=== PATIENT | female | born 1935 | race Hispanic/Latino ===

== ENCOUNTER 2020-06-06 16:41 | Inpatient (IN) | payer OTHER ==
[2020-06-06 22:52] LABS: Absolute Lymphocytes (CBC) 2.6 K/uL (0.7-4.9); Basophils % 0.6 % (0-1.3); Hematocrit 36.4 % (36.0-45.0); Lymphocytes % 40.6 % (15.3-44.8); MPV 8.7 fL (7.6-11.3); RBC Red Blood Cell Count 4.17 M/uL (3.86-4.86)
[2020-06-06 23:00] LABS: Protime INR 0.99
[2020-06-06 23:12] LABS: ALT/SGPT 22 U/L (12-78); AST/SGOT 20 U/L (15-37); Albumin 3.7 g/dL (3.4-5.0); Alkaline Phosphatase 47 U/L (45-117); BUN Blood Urea Nitrogen 24 mg/dL (7-18); Bicarbonate 28 mmol/L (21-32); Bilirubin Direct 0.1 mg/dL (0-0.2); Bilirubin Total 0.6 mg/dL (0.2-1.0); Glucose Level 106 mg/dL (74-106); Magnesium 2.4 mg/dL (1.8-2.4); NT PRO-BNP 372 pg/mL (<450); Potassium 3.8 mmol/L (3.5-5.1); Protein, Total 7.2 g/dL (6.4-8.2); Sodium Level 143 mmol/L (136-145); Troponin (Emerg Dept Use Only) < 0.02 ng/mL (0.0-0.045)
[2020-06-06] MEDS ORDERED: HYDRALAZINE HCL 10 MG TABLET ONE (23:21)
[2020-06-06] MEDS ORDERED: carvediloL 6.25 MG TAB ONE (23:21)
--- NOTE | 2020-06-06 23:54 | EDPHYS ---
Physician Documentation [facility] Name: Shaina Zuleta Age: 84 yrs Sex: Female : 1935 Arrival Date: 06/06/2020 Time: 16:42 Bed 24 Private MD: Behzad Hirsch ED Physician Herberth Lovell HPI: 06/06 22:28 This 84 yrs old Female presents to ER via Ambulatory with complaints of pkl Numbness Of Face. 22:28 The patient's problem is reported as paresthesias, left hand . Onset: The pkl symptoms/episode began/occurred yesterday, Symptoms resolved after about 30 mins.. Today at about 9 AM, she complained numbness left side face. Symptoms resolved after about 3 hours, She is at present asymptomatic. Historical: - Allergies: 17:59 No Known Allergies; ca1 - PMHx: 17:59 Hypertension; Arthritis; ca1 - PSHx: 17:59 Hysterectomy; ca1 - Immunization history:: Adult Immunizations up to date, Pneumococcal vaccine is not up to date, Flu vaccine is not up to date. - Social history:: Smoking status: Patient denies any tobacco usage or history of. ROS: 22:28 Eyes: Negative for injury, pain, redness, and discharge, ENT: Negative for injury, pkl pain, and discharge, Neck: Negative for injury, pain, and swelling, Cardiovascular: Negative for chest pain, palpitations, and edema, Respiratory: Negative for shortness of breath, cough, wheezing, and pleuritic chest pain, Abdomen/GI: Negative for abdominal pain, nausea, vomiting, diarrhea, and constipation, Back: Negative for injury and pain, : Negative for injury, bleeding, discharge, and swelling, MS/Extremity: Negative for injury and deformity, Skin: Negative for injury, rash, and discoloration. 22:28 Neuro: Positive for numbness, of the left hand yesterday and left side face this morning. Exam: 23:51 Radiologist reports: No acute intracranial abnormalities pkl 23:51 Head/Face: Normocephalic, atraumatic. Eyes: Pupils equal round and reactive to light, pkl extra-ocular motions intact. Lids and lashes normal. Conjunctiva and sclera are non-icteric and not injected. Cornea within normal limits. Periorbital areas with no swelling, redness, or edema. ENT: Nares patent. No nasal discharge, no septal abnormalities noted. Tympanic membranes are normal and external auditory canals are clear. Oropharynx with no redness, swelling, or masses, exudates, or evidence of obstruction, uvula midline. Mucous membranes moist. Neck: Trachea midline, no thyromegaly or masses palpated, and no cervical lymphadenopathy. Supple, full range of motion without nuchal rigidity, or vertebral point tenderness. No Meningismus. Chest/axilla: Normal chest wall appearance and motion. Nontender with no deformity. No lesions are appreciated. Cardiovascular: Regular rate and rhythm with a normal S1 and S2. No gallops, murmurs, or rubs. Normal PMI, no JVD. No pulse deficits. Respiratory: Lungs have equal breath sounds bilaterally, clear to auscultation and percussion. No rales, rhonchi or wheezes noted. No increased work of breathing, no retractions or nasal flaring. Abdomen/GI: Soft, non-tender, with normal bowel sounds. No distension or tympany. No guarding or rebound. No evidence of tenderness throughout. Back: No spinal tenderness. No costovertebral tenderness. Full range of motion. Skin: Warm, dry with normal turgor. Normal color with no rashes, no lesions, and no evidence of cellulitis. MS/ Extremity: Pulses equal, no cyanosis. Neurovascular intact. Full, normal range of motion. Neuro: Awake and alert, GCS 15, oriented to person, place, time, and situation. Cranial nerves II-XII grossly intact. Motor strength 5/5 in all extremities. Sensory grossly intact. Cerebellar exam normal. Normal gait. Vital Signs: 17:52 BP 175 / 62; Pulse 67; Resp 18 S; Temp 97.1(TE); Pulse Ox 100% on R/A; Weight 66.22 kg ca1 (R); Height 5 ft. 1 in. (154.94 cm) (R); 22:15 BP 201 / 57; Pulse 59; Resp 18; Pulse Ox 100% on R/A; ea 23:21 BP 174 / 48; Pulse 65; Resp 18; Temp 98; Pulse Ox 100% on R/A; ll2 06/07 00:25 BP 146 / 49; Pulse 57; Resp 16; Temp 98; Pulse Ox 99% on R/A; ll2 01:36 BP 148 / 50; Pulse 52; Resp 18; Pulse Ox 98% ; ea 20:00 BP 140 / 47; Pulse 65; Resp 16; Pulse Ox 99% ; Pain 0/10; cr4 06/06 17:52 Body Mass Index 27.59 (66.22 kg, 154.94 cm) ca1 NIH Stroke Scale Scores: 06/06 23:00 NIHSS Score: 0 ll2 MDM: 22:05 Patient medically screened. pkl 22:25 ED course: Talked to Dr. Hirsch, If CT Scan brain is negative to give 75 mg Plavix and pkl admit patient. No thrombolytics ( Outside window for therapy and symptoms have resolved ). 23:51 Data reviewed: vital signs, nurses notes, lab test result(s), EKG, radiologic studies, pkl CT scan, plain films. 06/06 22:24 Order name: Basic Metabolic Panel; Complete Time: 23:25 pkl 06/06 22:24 Order name: CBC with Diff; Complete Time: 23:25 pkl 06/06 22:24 Order name: LFT's; Complete Time: 23:25 pkl 06/06 22:24 Order name: Magnesium; Complete Time: 23:25 pkl 06/06 22:24 Order name: NT PRO-BNP; Complete Time: 23:25 pkl 06/06 22:24 Order name: PT-INR; Complete Time: 23:25 pkl 06/06 22:24 Order name: Troponin (emerg Dept Use Only); Complete Time: 23:25 pkl 06/06 22:24 Order name: XRAY Chest (1 view); Complete Time: 06:28 pkl 06/07 01:13 Order name: Basic Metabolic Panel EDMS 06/07 01:13 Order name: Basic Metabolic Panel; Complete Time: 06:28 EDMS 06/07 01:13 Order name: CBC with Automated Diff EDMS 06/07 01:13 Order name: CBC with Automated Diff; Complete Time: 06:28 EDMS 06/07 02:15 Order name: SARS-COV-2 RT PCR; Complete Time: 06:28 EDMS 06/06 22:24 Order name: EKG; Complete Time: 22:24 pkl 06/06 22:24 Order name: Cardiac monitoring; Complete Time: 22:39 pkl 06/06 22:24 Order name: EKG - Nurse/Tech; Complete Time: 22:39 pkl 06/06 22:24 Order name: IV Saline Lock; Complete Time: 22:39 pkl 06/06 22:24 Order name: Labs collected and sent; Complete Time: 22:39 pkl 06/06 22:24 Order name: O2 Per Protocol; Complete Time: 22:39 pkl 06/06 22:24 Order name: O2 Sat Monitoring; Complete Time: 22:39 pkl 06/06 22:25 Order name: CT Head Brain wo Cont pkl 06/07 01:13 Order name: Regular EDMS 06/07 01:13 Order name: Stroke Protocol EDMS 06/07 18:44 Order name: MRI; Complete Time: 06:28 EDMS 06/07 18:49 Order name: MRI; Complete Time: 06:28 EDMS Administered Medications: 23:10 Drug: carvedilol 12.5 mg Route: PO; ll2 23:58 Follow up: Response: No adverse reaction ll2 23:10 Drug: hydrALAZINE 10 mg Route: PO; ll2 23:58 Follow up: Response: No adverse reaction ll2 06/07 00:15 Drug: PlaVIX 75 mg Route: PO; ll2 00:19 Follow up: Response: No adverse reaction ll2 Disposition: 06/06/20 23:53 Hospitalization ordered by Behzad Hirsch for Inpatient Admission. Preliminary diagnosis is Transient ischemic attack. - Bed requested for Telemetry/MedSurg (Inpatient). - Status is Inpatient Admission. cr4 - Condition is Stable. - Problem is new. - Symptoms have improved. NIH Stroke Scale - NIH Stroke Score Date: 06/06/2020 Time: 23:00 Total Score = 0 1a. Level of Consciousness (LOC) - 0(Alert) 1b. Level of Consciousness (LOC) (Year \T\ Age) - 0(Both) 1c. LOC Commands (Open \T\ Closes Eyes/Supervisor Offset Plate Preparation) - 0(Both) 2. Best Gaze (Lateral Gaze Paresis) - 0(Normal) 3. Visual Field Loss - 0(No visual loss) 4. Facial Palsy - 0(Normal) 5a. Left Arm: Motor (10-second hold) - 0(No drift) 5b. Right Arm: Motor (10-second hold) - 0(No drift) 6a. Left Leg: Motor (5-second hold - always test supine) - 0(No drift) 6b. Right Leg: Motor (5-second hold - always test supine) - 0(No drift) 7. Limb Ataxia (finger/nose \T\ heel/mcqueen - test with eyes open) - 0(Absent) 8. Sensory Loss (pinprick arms/legs/face) - 0(Normal) 9. Best Language: Aphasia (description/naming/reading) - 0(No aphasia) 10. Dysarthria (speech clarity - read or repeat words) - 0(Normal) 11. Extinction and Inattention (visual/tactile/auditory/spatial/personal) - 0(No abnormality) Initials: ll2 Signatures: Dispatcher [employer] EDPA Lluvia Greene RN Maxwell Hughes RN Herberth Alvarez MD MD pkl Ruiz, Claudia RN RN cr4 Judith Ohara Cheryl, RN RN ca1 Yaquelin Stinson RN RN ll2 Corrections: (The following items were deleted from the chart) 01:03 06/06 23:55 CORONAVIRUS+MR.LAB.BRZ ordered. [facility] EDPA 12 01:06 12 23:53 Hospitalization Ordered by Behzad Hirsch MD for Inpatient Admission. Preliminary diagnosis is Transient ischemic attack. Bed requested for Telemetry/MedSurg (Inpatient). Status is Inpatient Admission. Condition is Stable. Problem is new. Symptoms have improved. [facility] 12 14:42 01:06 06/06/2020 23:53 Hospitalization Ordered by Behzad Hirsch MD for Inpatient dw Admission. Preliminary diagnosis is Transient ischemic attack. Bed requested for [facility] ER HOLD. Status is Inpatient Admission. Condition is Stable. Problem is new. Symptoms have improved. sg 16:53 14:42 06/06/2020 23:53 Hospitalization Ordered by Behzad Hirsch MD for Inpatient dw Admission. Preliminary diagnosis is Transient ischemic attack. Bed requested for Telemetry/MedSurg (Inpatient). Status is Inpatient Admission. Condition is Stable. Problem is new. Symptoms have improved. dw 18:47 16:53 06/06/2020 23:53 Hospitalization Ordered by Behzad Hirsch MD for Inpatient eb Admission. Preliminary diagnosis is Transient ischemic attack. Bed requested for [facility] ER HOLD. Status is Inpatient Admission. Condition is Stable. Problem is new. Symptoms have improved. dw 20:42 18:47 06/06/2020 23:53 Hospitalization Ordered by Behzad Hirsch MD for Inpatient cr4 Admission. Preliminary diagnosis is Transient ischemic attack. Bed requested for Telemetry/MedSurg (Inpatient). Status is Inpatient Admission. Condition is Stable. Problem is new. Symptoms have improved. eb
--- NOTE | 2020-06-06 23:54 | ER ---
Nurse's Notes [facility] Name: Shaina Zuleta Age: 84 yrs Sex: Female : 1935 Arrival Date: 06/06/2020 Time: 16:42 Bed 24 Private MD: Behzad Hirsch Diagnosis: Transient ischemic attack Presentation: 06/06 17:52 Chief complaint: Niece: She's been having numbness on the L hand since yesterday, it ca1 went away. Then today, numbness on L side of face started around noon and went away. A\T\Ox4. No slurring of speech. VAN negative. No facial drooping. Coronavirus screen: Client denies travel out of the [place] in the last 14 days. At this time, the client does not indicate any symptoms associated with coronavirus-19. Ebola Screen: Patient negative for fever greater than or equal to 101.5 degrees Fahrenheit, and additional compatible Ebola Virus Disease symptoms Patient denies exposure to infectious person. Patient denies travel to an Ebola-affected area in the 21 days before illness onset. No symptoms or risks identified at this time. Initial Sepsis Screen: Does the patient meet any 2 criteria? No. Patient's initial sepsis screen is negative. Does the patient have a suspected source of infection? No. Patient's initial sepsis screen is negative. Risk Assessment: Do you want to hurt yourself or someone else? Patient reports no desire to harm self or others. Onset of symptoms was June 06, 2020. 17:52 Method Of Arrival: Ambulatory ca1 17:52 Acuity: LUL 3 ca1 Historical: - Allergies: 17:59 No Known Allergies; ca1 - PMHx: 17:59 Hypertension; Arthritis; ca1 - PSHx: 17:59 Hysterectomy; ca1 - Immunization history:: Adult Immunizations up to date, Pneumococcal vaccine is not up to date, Flu vaccine is not up to date. - Social history:: Smoking status: Patient denies any tobacco usage or history of. Screenin:23 Abuse screen: Denies threats or abuse. Nutritional screening: No deficits noted. ll2 Tuberculosis screening: No symptoms or risk factors identified. Fall Risk None identified. Assessment: 22:15 Reassessment: ERD to bedside. General: Appears in no apparent distress. Behavior is ll2 calm, cooperative, appropriate for age. Pain: Denies pain. Neuro: Level of Consciousness is awake, alert, obeys commands, Oriented to person, place, time, situation. Cardiovascular: Patient's skin is warm and dry. Respiratory: Airway is patent Respiratory effort is even, unlabored, Respiratory pattern is regular, symmetrical. GI: No signs and/or symptoms were reported involving the gastrointestinal system. : No signs and/or symptoms were reported regarding the genitourinary system. EENT: No signs and/or symptoms were reported regarding the EENT system. Derm: Skin is intact, is healthy with good turgor, Skin is dry, Skin is pink, warm \T\ dry. Musculoskeletal: Circulation, motion, and sensation intact. Range of motion: intact in all extremities. 22:50 Reassessment: returned with pt from ct via stretcher. ll2 23:10 Reassessment: Patient and/or family updated on plan of care and expected duration. Pain ll2 level reassessed. Patient is alert, oriented x 3, equal unlabored respirations, skin warm/dry/pink. 12 00:15 Reassessment: Patient and/or family updated on plan of care and expected duration. Pain ll2 level reassessed. Patient is alert, oriented x 3, equal unlabored respirations, skin warm/dry/pink. charlie Barrera: [phone]. 00:55 Reassessment: Patient and/or family updated on plan of care and expected duration. Pain ll2 level reassessed. Patient is alert, oriented x 3, equal unlabored respirations, skin warm/dry/pink. 02:00 Reassessment: Patient and/or family updated on plan of care and expected duration. Pain ll2 level reassessed. Patient is alert, oriented x 3, equal unlabored respirations, skin warm/dry/pink. 03:00 Reassessment: report given to FABBY chung. ll2 19:05 Reassessment: Patient and/or family updated on plan of care and expected duration. Pain cr4 level reassessed. Patient is alert, oriented x 3, equal unlabored respirations, skin warm/dry/pink. General: Appears in no apparent distress. comfortable, Behavior is calm, cooperative, appropriate for age. Pain: Denies pain. Neuro: Level of Consciousness is awake, alert, obeys commands, Denies weakness numbness headache. Cardiovascular: Denies nausea, shortness of breath, syncope, Patient's skin is warm and dry. Respiratory: Airway is patent Respiratory effort is even, unlabored, Respiratory pattern is regular, symmetrical. GI: No signs and/or symptoms were reported involving the gastrointestinal system. : No signs and/or symptoms were reported regarding the genitourinary system. EENT: No signs and/or symptoms were reported regarding the EENT system. Derm: Musculoskeletal: Circulation, motion, and sensation intact. Range of motion: intact in all extremities. 19:10 Reassessment: awaiting floor to be ready for report called and phone was busy.. cr4 20:00 Reassessment: report called and given to Neisha SEQUEIRA. waiting on US to azeem villafana cr4 US.. Vital Signs: 12 17:52 BP 175 / 62; Pulse 67; Resp 18 S; Temp 97.1(TE); Pulse Ox 100% on R/A; Weight 66.22 kg ca1 (R); Height 5 ft. 1 in. (154.94 cm) (R); 22:15 BP 201 / 57; Pulse 59; Resp 18; Pulse Ox 100% on R/A; ea 23:21 BP 174 / 48; Pulse 65; Resp 18; Temp 98; Pulse Ox 100% on R/A; ll2 12/04 00:25 BP 146 / 49; Pulse 57; Resp 16; Temp 98; Pulse Ox 99% on R/A; ll2 01:36 BP 148 / 50; Pulse 52; Resp 18; Pulse Ox 98% ; ea 20:00 BP 140 / 47; Pulse 65; Resp 16; Pulse Ox 99% ; Pain 0/10; cr4 12 17:52 Body Mass Index 27.59 (66.22 kg, 154.94 cm) ca1 NIH Stroke Scale Scores: 06/06 23:00 NIHSS Score: 0 ll2 ED Course: 16:42 Patient arrived in ED. ag5 16:43 Behzad Hirsch MD is Private Physician. ag5 17:58 Triage completed. ca1 17:59 Arm band placed on right wrist. ca1 22:02 Nilo Cancino RN is Primary Nurse. rv 22:05 Herberth Lovell MD is Attending Physician. pkl 22:23 Patient has correct armband on for positive identification. Pulse ox on. NIBP on. ll2 22:38 Inserted saline lock: 20 gauge in right forearm, using aseptic technique. Blood ea collected. 22:49 XRAY Chest (1 view) In Process Unspecified. EDMS 22:59 CT Head Brain wo Cont In Process Unspecified. EDMS 23:52 Behzad Hirsch MD is Hospitalizing Provider. pkl 06/07 00:10 COVID swab sent to lab. ll2 20:00 No provider procedures requiring assistance completed. Patient admitted, IV remains in cr4 place. Administered Medications: 06/06 23:10 Drug: carvedilol 12.5 mg Route: PO; ll2 23:58 Follow up: Response: No adverse reaction ll2 23:10 Drug: hydrALAZINE 10 mg Route: PO; ll2 23:58 Follow up: Response: No adverse reaction ll2 06/07 00:15 Drug: PlaVIX 75 mg Route: PO; ll2 00:19 Follow up: Response: No adverse reaction ll2 Outcome: 06/06 23:53 Decision to Hospitalize by Provider. pkl 06/07 20:42 Patient left the ED. cr4 20:42 Admitted to Med/surg accompanied by tech, family with patient, via wheelchair, with cr4 chart, Report called to Sissy 20:42 Condition: stable 20:42 Discharge instructions given to patient, family, Instructed on the need for admit, Demonstrated understanding of instructions. NIH Stroke Scale - NIH Stroke Score Date: 06/06/2020 Time: 23:00 Total Score = 0 1a. Level of Consciousness (LOC) - 0(Alert) 1b. Level of Consciousness (LOC) (Year \T\ Age) - 0(Both) 1c. LOC Commands (Open \T\ Closes Eyes/Assistant Librarian) - 0(Both) 2. Best Gaze (Lateral Gaze Paresis) - 0(Normal) 3. Visual Field Loss - 0(No visual loss) 4. Facial Palsy - 0(Normal) 5a. Left Arm: Motor (10-second hold) - 0(No drift) 5b. Right Arm: Motor (10-second hold) - 0(No drift) 6a. Left Leg: Motor (5-second hold - always test supine) - 0(No drift) 6b. Right Leg: Motor (5-second hold - always test supine) - 0(No drift) 7. Limb Ataxia (finger/nose \T\ heel/mcqueen - test with eyes open) - 0(Absent) 8. Sensory Loss (pinprick arms/legs/face) - 0(Normal) 9. Best Language: Aphasia (description/naming/reading) - 0(No aphasia) 10. Dysarthria (speech clarity - read or repeat words) - 0(Normal) 11. Extinction and Inattention (visual/tactile/auditory/spatial/personal) - 0(No abnormality) Initials: ll2 Signatures: Dispatcher [employer] EDHerberth Rawls MD MD pkl Madalyn Harper, RN RN cr4 Charley Garcia RN Nilo Irizarry ea, RN Lisbet Graham, RN RN Vaibhav Briggs ag5 Yaquelin Stinson, RN RN ll2
[2020-06-07] MEDS ORDERED: CLOPIDOGREL 75 MG TABLET ONE (00:16)
[2020-06-07] MEDS ORDERED: NA CHLORIDE 0.9% 1,000 ML ONE ×2 (03:49→15:15)
[2020-06-07] MEDS: NA CHLORIDE 0.9% 1,000 ML IV SCH ×2 (04:06→15:01)
[2020-06-07] MEDS: HYDRALAZINE HCL 25 MG TABLET PO SCH ×2 (08:23→21:19)
[2020-06-07] MEDS: NIFEDIPINE XL 60 MG TABLET PO SCH (08:23)
[2020-06-07] MEDS: lisinopriL 20 MG TAB PO SCH (08:23)
[2020-06-07] MEDS: hydroCHLOROthiazide 25 MG TAB PO SCH (08:23)
[2020-06-07] MEDS: carvediloL 12.5 MG TAB PO SCH ×2 (08:24→21:19)
--- NOTE | 2020-06-07 08:28 | RAD REPORT ---
EXAM DESCRIPTION: RAD - Chest Single View - 06/06/2020 10:52 pm CLINICAL HISTORY: numbness face, cough COMPARISON: Two view August 2016 TECHNIQUE: AP portable chest image was obtained 06/06/2020 10:52 pm . FINDINGS: Chronic interstitial opacification is present similar to comparison. No focal process seen . Fullness of the right hilum has not changed. Heart and vasculature are normal. No measurable pleura l effusion and no pneumothorax. No acute bony abnormality seen. No acute aortic findings suspected. IMPRESSION: No acute cardiopulmonary process. No worrisome change from comparison.
[2020-06-07] MEDS ORDERED: hydroCHLOROthiazide 25 MG TAB ONE (08:34)
[2020-06-07] MEDS ORDERED: carvediloL 6.25 MG TAB ONE (08:34)
[2020-06-07] MEDS ORDERED: lisinopriL 20 MG TAB ONE (08:34)
[2020-06-07] MEDS ORDERED: NIFEdipine 10 MG CAP ONE (08:35)
--- NOTE | 2020-06-07 13:38 | EKG ---
Test Date: 2020-06-06 Test Time: 22:33:58 Ore Tester: RADHA MEASUREMENT RESULTS: Intervals: Rate: 61 MD: 178 QRSD: 78 QT: 422 QTc: 424 [place]: P: 72 MD: 178 QRS: 24 T: 49 INTERPRETIVE STATEMENTS: Normal sinus rhythm Normal ECG Compared to ECG 04/08/2002 08:24:00 Sinus bradycardia no longer present Electronically Signed On 06-07-20 13:37:00 KEY ACCOUNT EXECUTIVE by Rolly Bergeron
--- NOTE | 2020-06-07 14:28 | ECHO ---
HEIGHT: 5 ft 1 in WEIGHT: 146 lb 0 oz DATE OF STUDY: 06/07/[address]: Behzad Hirsch MD 2-DIMENSIONAL: YES M.MODE: YES DOPPLER: YES COLOR FLOW: YES TDS: PORTABLE: DEFINITY: BUBBLE STUDY: DIAGNOSIS: TRANSIENT ISCHEMIC ATTACK CARDIAC HISTORY: CATHERIZATION: NO SURGERY: NO PROSTHETIC VALVE: NO PACEMAKER: NO MEASUREMENTS (cm) DIASTOLIC (NORMALS) SYSTOLIC (NORMALS) IVSd 1.0 (0.6-1.2) LA Diam 2.7 (1.9-4.0) LVEF 79% LVIDd 4.0 (3.5-5.7) LVIDs 2.1 (2.0-3.5) %FS 47% LVPWd 1.1 (0.6-1.2) Ao Diam 2.3 (2.0-3.7) 2 DIMENSIONAL ASSESSMENT: RIGHT ATRIUM: LEFT ATRIUM: RIGHT VENTRICLE: LEFT VENTRICLE: TRICUSPID VALVE: MITRAL VALVE: PULMONIC VALVE: AORTIC VALVE: PERICARDIAL EFFUSION: AORTIC ROOT: LEFT VENTRICULAR WALL MOTION: DOPPLER/COLOR FLOW: COMMENTS: NORMAL 2-DIMENSIONAL ECHOCARDIOGRAM WITH DOPPLER. NO VEGETATION. NO THROMBUS. TECHNOLOGIST: ADAM HERRERA
--- NOTE | 2020-06-07 18:42 | RAD REPORT ---
EXAM DESCRIPTION: MRI - Brain Wo Cont - 06/07/2020 5:31 pm CLINICAL HISTORY: TIA Headache, drowsiness, CVA symptomology COMPARISON: MRA Head Wo Cont dated 06/07/2020; Head Brain Wo Cont dated 06/06/2020; Chest Single View dated 06/06/2020 TECHNIQUE: Multi-sequence, multiplanar MR imaging of the brain was performed without contrast. FINDINGS: No intracranial hemorrhage, hydrocephalus or extra-axial fluid collections. No edema or sh ift of midline structures. No findings to suspect brain mass. DWI is negative for acute CVA. There is subtle elevated FLAIR signal seen within the subarachnoid space bilaterally. This is a nonsp ecific finding but can be seen in supplemental oxygen administration as well as pathologic condition such as meningitis or subarachnoid hemorrhage although there are no supportive findings on recent CT or MRI for these pathologies. Mastoid air cells and paranasal sinuses are clear. IMPRESSION: Negative for acute CVA. Subtle elevated FLAIR signal in the subarachnoid space is present bilaterally. It is doubtful that th is represents pathologic finding given the lack of additional supportive abnormalities seen on both r ecent CT and this MR study. This may be related to supplemental oxygen administration. Consider follo w-up MRI examination of the brain 2-3 days surveillance.
--- NOTE | 2020-06-07 18:46 | RAD REPORT ---
EXAM DESCRIPTION: MRI - MRA Head Wo Cont - 06/07/2020 5:31 pm CLINICAL HISTORY: TIA CVA COMPARISON: Head Brain Wo Cont dated 06/06/2020 FINDINGS: 3D noncontrast [id number] MR angiography of the [place] was performed. No aneurysm, flow-limiting stenosis or vascular malformation is seen. Forward flow seen in codominant vertebral arteries. The visualized dural venous sinuses appear patent. IMPRESSION: No significant flow abnormality of the [place] is identified.
--- NOTE | 2020-06-07 19:37 | CON ---
Reason For Consultation: Consultation is called because of transient ischemic attack. History Of Present Illness: Ms. Zuleta is an 84-year-old right-handed patient with hypertension and arthritis who comes in with symptoms consistent with transient ischemic attack. On June 06, she was reading her Bible when she noted difficulty using the left index finger to turn the page. The finger was numb and weak. The symptoms spread to the rest of her fingers over approx imately 5 minutes and then resolved. She continued doing well until the following day when she noted her left face became numb and weak as though she had a shot when going to the dentist. At that poin t, she contacted her primary care physician and was advised to come to [facility]. Her head CT scan showed no acute ischemic or hemorrhagic change on arrival. Her workup revealed a normal com plete blood count with differential. Coagulation panel was normal. Chemistries suggested dehydratio n versus chronic kidney disease with creatinine 1.58, otherwise liver function studies were normal. She has pending cholesterol panel. Urinalysis pending. She is COVID-19 negative. Her echocardiogra m shows a normal 2-dimensional study with ejection fraction 79%. Her electrocardiogram shows normal sinus rhythm and is a normal study and chest x-ray showed no acute cardiopulmonary abnormalities. Sh jeri was given Plavix 75 mg daily, intravenous fluids, and Lipitor 80 mg at bedtime. Her symptoms have not recurred and it should be noted that the second episode of left facial symptoms lasted about 20 m inutes. Past Medical History: As indicated. Allergies: NO KNOWN DRUG ALLERGIES. Past Surgical History: Hysterectomy. Social History: No alcohol, tobacco, or IV drug use. Family History: Noncontributory. Physical Examination: Vital Signs: Blood pressure 149/48, pulse 66, respiratory rate 17, temperature 97.8, oxygen saturati on 99%. General: Ms. Zuleta is resting in bed. She is in no acute distress. HEENT: She is normocephalic, atraumatic. Sclerae anicteric. Oropharynx is pink and moist. Neck: Supple. Chest: Clear. Heart: Regular. Extremities: Show no clubbing, cyanosis, or edema. Neurological: Alert, oriented to person, place, time, and situation. Cranial nerves 2 through 12 in tact by exam. Motor examination of the upper and lower extremities, 5/5 strength proximally and dist ally. Coordination intact in the upper and lower extremities. Reflexes 1 to 2+ and symmetric in the upper and lower extremities. She will be ambulated with physical therapy using gait belt. Assessment: Ms. Zuleta is an 84-year-old patient with multiple maag-kk-yagb transient ischemic attac ks over 2 days. Neurological examination shows no deficits at this point. She had CT scan, no acute ischemic hemorrhagic change identified. She is pending a brain MRI. Her echocardiogram is normal. Plan: 1.Continue 81 mg aspirin and 75 mg Plavix for at least 1 month, then switch to just aspirin only. 2.Folic acid 1 mg daily. 3.Continue statin, Lipitor 80 mg at bedtime. At this juncture, may allow for some permissive hypert ension over the next 5 days, then try to normalize blood pressure with medications including SHRADDHA inhi bitor as she is already scheduled on Procardia XL. 4.When the patient is discharged, she may follow up in Dr. Sen's clinic in 1 month, especially if MRI of the brain shows no acute ischemic or hemorrhagic change. DIEGO/ANYA Voice ID: [id number] Report ID: [id number]
[2020-06-07] MEDS ORDERED: ATORVASTATIN 80 MG TAB PO SCH (21:00)
--- NOTE | 2020-06-07 21:13 | RAD REPORT ---
EXAM DESCRIPTION: US - CP - 06/07/2020 8:49 pm CLINICAL HISTORY: TIA Headache, drowsiness COMPARISON: Soft Tissue Neck Wo Contr dated 02/17/2018 TECHNIQUE: Real-time sonographic evaluation of both carotid systems was performed. Doppler interroga tion was performed with waveform tracing bilaterally. FINDINGS: Normal high resistance waveforms are noted in both external carotid arteries. The common c arotid arteries and internal carotid arteries show normal low resistance waveforms. Mild hard plaque is seen in both carotid bulbs. Peak systolic and end diastolic velocity values and t he ICA/CCA ratios are in the non-hemodynamically significant range. Antegrade flow seen in both vertebral arteries. IMPRESSION: Mild hard plaque is seen in both carotid bulbs. No evidence of a hemodynamically significant stenosis.
[2020-06-07 22:02] VITALS: BMI 26.3
[2020-06-08] MEDS: NA CHLORIDE 0.9% 1,000 ML IV SCH (00:50)
--- NOTE | 2020-06-08 02:56 | HP ---
Date of Admission: 06/07/2020 Chief Complaint: Tingling numbness. History Of Present Illness: This is an 84-year-old very pleasant female patient who came into emerge ncy room with complaints of tingling numbness. The patient had 2 different episodes, 1 yesterday and 1 day before. After yesterday's episode, she came to emergency room. With her first episode when s he had tingling numbness, it lasted for about 20-30 minutes and it only affected her fingers on the l eft hand and this was day before yesterday. She was doing fine and yesterday, she had single episode of such tingling and numbness and this time, it affected her left upper extremity as well as left si de of the face. She did not have any headache with either episode and denies any visual complaints. No nausea, vomiting. No fall or head injury. No weakness of arms or legs. The patient had contact ed office with these complaints and she was advised to come to emergency room. After she was evaluat ed, she was admitted to the hospital. Allergies: TO IBUPROFEN, WHICH MAKES HER FEEL WORSE. Medications: List reviewed. Review of Systems: [employer]: As mentioned above. All other systems reviewed and negative. Medications: Fosamax 70 mg once a week, Caltrate plus D 1 tablet by mouth 2 times a day, pravastatin 40 mg daily, nifedipine 60 mg daily, carvedilol 12.5 mg 2 times a day, hydralazine 25 mg 2 times a d ay, hydrochlorothiazide 25 mg p.o. daily, lisinopril 20 mg p.o. daily, Claritin p.r.n. Past Medical History: Significant for hypertension, chronic kidney disease stage 3, hyperlipidemia, chronic leg edema, osteoarthritis at multiple sites, osteoporosis, leukocytopenia. Past Surgical History: Appendectomy, hysterectomy. Family History: Father had asthma. Mother had hypertension, macular degeneration. Social History: Negative for smoking and alcohol use. Physical Examination: Vital Signs: Height 5 feet 1 inch, weight 146 pounds, temperature 97.7, pulse 62, respiratory rate 1 8, and blood pressure 155/53. Oxygen saturations 100%. General: Awake, alert, oriented, not in distress. HEENT: Head atraumatic, normocephalic. Conjunctivae nonerythematous. Sclerae white. Mouth, no thr ush or edema noted. Ears/Nose, no mass, lesion, discharge noted. Neck: Supple. No JVD, lymph nodes, bruit, thyromegaly noted. Lungs: Bilateral good equal air entry. Clear to auscultation. No rhonchi. No rales. Heart: Normal heart sounds, no murmur or gallop. Abdomen: Soft, bowel sounds normal. No guarding, rigidity, tenderness, mass, hepatosplenomegaly, dis tention, or bruit noted. Extremities: No leg edema. No calf tenderness. Skin: No rash, ulcer, cellulitis. Lymphatics: No lymph node enlargement in neck, supraclavicular, infraclavicular region. Neuro: No focal neurological deficit. Chest: Unremarkable. External Genitalia: Deferred. Rectal: Deferred. Laboratory Data: White count 6.3, hemoglobin 12.2, platelets 196. Sodium 143, potassium 3.8, chlori de 109, bicarb 28, BUN 34, creatinine 1.5, glucose 106. Liver function tests unremarkable. Troponin less than 0.02. COVID-19 test negative. Chest x-ray, no acute cardiopulmonary changes. EKG, sinus rhythm with sinus arrhythmia, first-degree AV block. CAT scan of the head without contrast; no acut e cardiopulmonary changes. Impression: 1.Transient ischemic attack, recurrent. 2.Hyperlipidemia. 3.Chronic kidney disease, stage 3. 4.Leg edema. 5.Osteoarthritis, multiple sites. 6.Osteoporosis. Plan: Admit patient to hospital for further evaluation and management of this problem. The patient is appropriate for inpatient and is expected to spend 2 midnights in hospital. After ER physician co ntacted me last night, Plavix 75 mg p.o. x1 dose was ordered to be given considering negative CAT sca n and I am concerned about her having recurrent TIA problem so we need to aggressively treat her for any stroke prevention. We will go ahead and give aggressive statin therapy. Normally, she takes pra vastatin 40 mg daily at home. We will change it to atorvastatin 80 mg daily at bedtime. Consult giovanni rologist. MRI of brain per stroke protocol will be done today and further plan of treatment will dep end on that. Details and plan of treatment discussed with patient. LORENZO/MODL Voice ID: [id number]
[2020-06-08 05:31] LABS: Absolute Lymphocytes (CBC) 1.7 K/uL (0.7-4.9); Basophils % 0.8 % (0-1.3); Hematocrit 31.9 % (36.0-45.0); Lymphocytes % 30.6 % (15.3-44.8); MPV 8.6 fL (7.6-11.3); RBC Red Blood Cell Count 3.65 M/uL (3.86-4.86)
[2020-06-08 05:42] LABS: Potassium 3.7 mmol/L (3.5-5.1)
[2020-06-08] MEDS: hydroCHLOROthiazide 25 MG TAB PO SCH (08:34)
[2020-06-08] MEDS: NIFEDIPINE XL 60 MG TABLET PO SCH (08:35)
[2020-06-08] MEDS: carvediloL 12.5 MG TAB PO SCH (08:35)
[2020-06-08] MEDS: HYDRALAZINE HCL 25 MG TABLET PO SCH (08:35)
[2020-06-08] MEDS: lisinopriL 20 MG TAB PO SCH (08:35)
[2020-06-08 08:37] VITALS: BP 133/60
[2020-06-08 08:43] VITALS: O2SAT 98
[2020-06-08 09:16] VITALS: TEMP 98.3
--- NOTE | 2020-06-08 09:33 | RAD REPORT ---
EXAM DESCRIPTION: CT - Head Brain Wo Cont - 06/07/2020 6:58 am CLINICAL HISTORY: 84-year-old female with left-sided facial numbness. COMPARISON: None. TECHNIQUE: CT brain without contrast. This exam was performed according to our departmental dose opt imization program which includes use of automated exposure control, adjustment of the mA and/or kV ac cording to patient size and/or use of iterative reconstruction technique. FINDINGS: The ventricles, sulci, and cisterns are within normal limits. The baird-white matter diff erentiation is preserved. There is no mass effect, midline shift, intra- or extra-axial fluid colle ction/acute hemorrhage. The osseous structures reveal nonspecific focus of hypoattenuation slightly expansile in appearance level of the LEFT frontal calvarium without aggressive features, well-circum scribed with central focus of sclerosis measuring 22 x 6 mm (201, image 13). The paranasal sinuses and mastoid air cells are clear. IMPRESSION: 1. No acute intracranial abnormalities. 2. Nonspecific focus of circumscribed hypoattenuation present at the LEFT frontal bony calvarium as d etailed above. Correlation with patient history is recommended. Follow-up evaluation with MRI pre and postcontrast may be considered. Electronically signed by: Mylene Maier MD 06/06/2020 11:29 PM [employer] Due to temporary technical issues with the PACS/Fluency reporting system, reports are being signed by the in house radiologists without review as a courtesy to insure prompt reporting. The interpreting radiologist is fully responsible for the content of the report.
--- NOTE | 2020-06-08 11:53 | DS ---
Date of Discharge: 06/08/2020 Disposition: Discharged to go home. Physical Examination: HEENT: Unremarkable. Lungs: Clear to auscultation. Heart: Sounds normal. Abdomen: Soft. Bowel sounds normal. No guarding, rigidity, tenderness, or distention. Extremities: No leg edema. Discharge Medications And Instructions: 1. Continue all prior home medications except stop pravastatin. 2. Take aspirin 81 mg 1 tablet by mouth daily. Take following new medications: 1. Clopidogrel 75 mg 1 tablet by mouth daily for 1 month. 2. Atorvastatin 80 mg 1 tablet by mouth daily at bedtime. Follow up at my office on 06/13/2020 and call office for appointment. Laboratory Data: Labs done during this hospitalization: Upon admission on 06/06/2020 white count 6.3, hemoglobin 12.2, and a platelet count of 196. Today, white count 5.7, hemoglobin 10.7, platelets 174. Upon admission, sodium 143, potassium 3.8, chloride 109, bicarb 28, BUN 24, creatinine 1.58, glucose 106. Liver function tests unremarkable. Troponin less than 0.02. This morning sodium 145, potassium 3.7, chloride 115, bicarb 26, BUN 17, creatinine 1.21, glucose 99. Hospital Course: An 84-year-old pleasant female patient admitted to the hospital with recurrent episode of tingling. Please see dictated H and P for more information. After the patient came into emergency room, she was admitted to the hospital with this recurrent TIA episodes. She was started on anti- platelet therapy with clopidogrel. She was not taking any aspirin prior to this admission. Her home medications were continued except we discontinued her pravastatin and start her on a high-intensity statin therapy with atorvastatin 80 mg at bedtime. Her CAT scan of the head was negative for any acute changes. MRI of the brain without contrast was negative for any acute changes. Carotid Doppler showed mild plaquing of bilateral carotids. No hemodynamically significant stenotic lesion. Echocardiogram showed normal ejection fraction. No thrombus in the left ventricle and no evidence of vegetation. The patient's neurological exam remained normal and has not had any recurrence of tingling, numbness problem. Dr. Sen from Neurology was consulted and he has recommended for the patient to take aspirin 81 mg daily and Plavix 75 mg daily. He wants the patient to stay on Plavix just for 1 month after that. The patient to continue aspirin 81 mg daily and all these instructions were given to the patient and her daughter today. Final Diagnoses: 1. Transient ischemic attack 2. Bilateral carotid artery disease, mild. 3. Chronic kidney disease, stage IIIA. 4. Hypertension. 5. Hyperlipidemia. 6. Osteoarthritis, multiple sites. 7. Leg edema. 8. Osteoporosis. 9. Anemia, unspecified. LORENZO/MODL Voice ID: [id number] Report ID: [id number] MTDAlex
== END 2020-06-08 11:24 | disposition home or self-care (01) | DRG 69 ==
LOC: ER 16:41 → ERHOLD 06-07 02:11 → 2ND 06-07 19:44
PROVIDERS: ADMIT Internal Medicine; ATTEND Internal Medicine
DX: G45.9 Transient cerebral ischemic attack, unspecified (principal); R29.700 NIHSS score 0; R20.2 Paresthesia of skin; R20.0 Anesthesia of skin; E78.5 Hyperlipidemia, unspecified; I65.23 Occlusion and stenosis of bilateral carotid arteries; D64.9 Anemia, unspecified; M81.0 Age-related osteoporosis without current pathological fracture; M19.90 Unspecified osteoarthritis, unspecified site; I12.9 Hypertensive chronic kidney disease with stage 1 through stage 4 chronic kidney disease, or unspecified chronic kidney disease; N18.31 Chronic kidney disease, stage 3a; R60.0 Localized edema; Z90.710 Acquired absence of both cervix and uterus; Z88.8 Allergy status to other drugs, medicaments and biological substances; Z90.49 Acquired absence of other specified parts of digestive tract; Z79.899 Other long term (current) drug therapy; Z20.828 Contact with and (suspected) exposure to other viral communicable diseases
CPT/HCPCS: 36415; 70450; 70544; 70551; 71045; 80048; 80076; 83735; 83880; 84484; 85025; 85610; 93005; 93306; 93880; 99285; J7030; U0003

== ENCOUNTER 2020-07-05 13:38 | Observation (INO) | payer OTHER ==
[2020-07-05 14:13] LABS: Absolute Lymphocytes (CBC) 1.4 K/uL (0.7-4.9); Basophils % 0.6 % (0-1.3); Hematocrit 32.6 % (36.0-45.0); Lymphocytes % 18.5 % (15.3-44.8); MPV 8.4 fL (7.6-11.3); RBC Red Blood Cell Count 3.77 M/uL (3.86-4.86)
[2020-07-05 14:14] LABS: Protime INR 1.03
--- NOTE | 2020-07-05 14:32 | RAD REPORT ---
EXAM DESCRIPTION: RAD - Chest Single View - 07/05/2020 2:07 pm CLINICAL HISTORY: syncope COMPARISON: Portable June 06, 2020 TECHNIQUE: AP portable chest image was obtained 07/05/2020 2:07 pm . FINDINGS: Chronic interstitial opacification is present appearing slightly worse than the study 1 mo nth earlier. This would indicate superimposed interstitial edema or infiltrate rather than progressiv e fibrosis. No focal mass or consolidations seen. Heart and vasculature are normal. No measurable ple ural effusion and no pneumothorax. No acute bony abnormality seen. No acute aortic findings suspected . IMPRESSION: No focal mass or consolidation. Interstitial pattern appears increased over the findings 1 month earlier. This is suspicious for noreen y interstitial edema or infiltrate.
--- NOTE | 2020-07-05 14:36 | RAD REPORT ---
EXAM DESCRIPTION: CT - CTHCSPWOC - 07/05/2020 2:11 pm CLINICAL HISTORY: PAIN, fall, syncope, head and neck injury COMPARISON: Soft Tissue Neck Wo Contr dated 02/17/2018; Brain Wo Cont dated 06/07/2020 TECHNIQUE: Axial 5 mm thick images of the head were obtained. Axial 2 mm thick images of the cervic al spine were obtained with sagittal and coronal reconstruction images generated and reviewed. All CT scans are performed using dose optimization technique as appropriate and may include automated exposure control or mA/KV adjustment according to patient size. FINDINGS: No intracranial hemorrhage, mass, edema or acute intracranial finding. No suspicion for ac upper matt[place] infarction. Patient has minimal atrophy and little identifiable chronic ischemic change. No corti kaveh edema or sulcal effacement identified. Mastoid air cells and paranasal sinuses are clear. No glob e or orbit abnormality seen. Cervical bodies are normal in height. There is a very slight retrolisthesis of C4 on C5 with C4-5 dis c space narrowing. Posterior disc bulge and endplate spurring changes cause spinal stenosis to 7 mm a nd significant bilateral bony foraminal encroachment from uncovertebral joint hypertrophy. No other s ignificant disc space narrowing. No fracture or acute bony abnormality. Central canal detail is inhe rently limited. No paraspinal mass or hematoma. IMPRESSION: No hemorrhage or acute intracranial finding identifiable. Patient has minimal atrophy an d chronic ischemic change match the MRI study 1 month earlier. No fracture or acute cervical spine finding. Degenerative change at C4-5 causes spinal stenosis to 7 mm and significant bilateral foraminal stenosis.
[2020-07-05 14:37] LABS: AST/SGOT 121 U/L (15-37); Alkaline Phosphatase 315 U/L (45-117); BUN Blood Urea Nitrogen 17 mg/dL (7-18); Bicarbonate 26 mmol/L (21-32); Bilirubin Direct 0.6 mg/dL (0-0.2); Bilirubin Total 1.3 mg/dL (0.2-1.0); Glucose Level 119 mg/dL (74-106); Magnesium 2.8 mg/dL (1.8-2.4); NT PRO-BNP 1262 pg/mL (<450); Protein, Total 6.5 g/dL (6.4-8.2); Sodium Level 141 mmol/L (136-145); Troponin (Emerg Dept Use Only) < 0.02 ng/mL (0.0-0.045)
[2020-07-05 14:42] LABS: ALT/SGPT 332 U/L (12-78)
--- NOTE | 2020-07-05 15:47 | RAD REPORT ---
EXAM DESCRIPTION: US - Abdomen Exam Limited - 07/05/2020 3:41 pm CLINICAL HISTORY: ABD PAIN COMPARISON: Renal Ultrasound-Complete dated 05/16/2020 FINDINGS: No gallstones, sludge or other abnormalities within the gallbladder lumen. There is no wal l thickening or pericholecystic fluid. No common duct stone or biliary tree dilatation identified. IMPRESSION: Normal gallbladder and biliary tree ultrasound.
--- NOTE | 2020-07-05 16:23 | ER ---
Nurse's Notes [facility] Name: Shaina Zuleta Age: 84 yrs Sex: Female : 1935 Arrival Date: 07/05/2020 Time: 13:45 Bed 3 Private MD: Diagnosis: Syncope and collapse Presentation: 07/05 13:46 Chief complaint: EMS states: syncopal episode that occurred approximately 45 minutes ss ago. BP was 104/36 en route to ED. PT reports that she took her daily dose of BP medications this AM. Coronavirus screen: Client denies travel out of the [place] in the last 14 days. Ebola Screen: Patient denies exposure to infectious person. Patient denies travel to an Ebola-affected area in the 21 days before illness onset. Initial Sepsis Screen: Does the patient meet any 2 criteria? No. Patient's initial sepsis screen is negative. Does the patient have a suspected source of infection? No. Patient's initial sepsis screen is negative. Risk Assessment: Do you want to hurt yourself or someone else? Patient reports no desire to harm self or others. Onset of symptoms was July 05, 2020. 13:46 Method Of Arrival: Ambulatory ss 13:46 Acuity: LUL 2 ss 13:50 Care prior to arrival: IV initiated. 20 GA, in the right antecubital area. ss 13:55 Care prior to arrival: Medication(s) given: Normal saline infusion, 200 mL Glucose ss check: 144. Historical: - Allergies: 13:50 Ibuprofen; ss - PMHx: 13:50 Arthritis; Hypertension; ss - PSHx: 13:50 Hysterectomy; ss - Immunization history:: Adult Immunizations up to date. - Social history:: Smoking status: Patient denies any tobacco usage or history of. Screenin:03 Abuse screen: Denies threats or abuse. Denies injuries from another. Nutritional ph screening: No deficits noted. Tuberculosis screening: No symptoms or risk factors identified. Fall Risk None identified. Assessment: 14:30 General: Appears in no apparent distress. comfortable, slender, well groomed, Behavior ph is calm, cooperative, appropriate for age, Denies fever, feeling ill. Pain: Denies pain. Neuro: Level of Consciousness is awake, alert, obeys commands, Oriented to person, place, time, situation, Moves all extremities. Full function. Neuro: Reports dizziness, a syncopal episode weakness. Cardiovascular: Capillary refill < 3 seconds in bilateral fingers Patient's skin is warm and dry. Respiratory: Airway is patent Respiratory effort is even, unlabored, Respiratory pattern is regular, symmetrical. GI: No signs and/or symptoms were reported involving the gastrointestinal system. Derm: Skin is intact, is healthy with good turgor, Skin is pink, warm \T\ dry. Musculoskeletal: Circulation, motion, and sensation intact. Range of motion: intact in all extremities. 15:30 Reassessment: Patient appears in no apparent distress at this time. Patient and/or ph family updated on plan of care and expected duration. Pain level reassessed. Patient is alert, oriented x 3, equal unlabored respirations, skin warm/dry/pink. 16:49 Reassessment: Patient appears in no apparent distress at this time. Patient and/or ph family updated on plan of care and expected duration. Pain level reassessed. Patient is alert, oriented x 3, equal unlabored respirations, skin warm/dry/pink. 16:52 Reassessment: Instrument Checker, Lluvia request COVID test to be resulted prior to ss receiving room assignment. WING Baires notified and states OK to order COVID-19 swab at this time. 18:48 Reassessment: Patient appears in no apparent distress at this time. Patient and/or ph family updated on plan of care and expected duration. Pain level reassessed. Patient is alert, oriented x 3, equal unlabored respirations, skin warm/dry/pink. 19:05 General: Appears in no apparent distress. comfortable, Behavior is calm. rr5 19:05 Neuro: Level of Consciousness is awake, alert, obeys commands, Oriented to person, rr5 place, time, Reports dizziness, a syncopal episode weakness. Cardiovascular: Capillary refill < 3 seconds Patient's skin is warm and dry. Rhythm is regular. Respiratory: Airway is patent Respiratory effort is Respiratory pattern is regular, symmetrical. GI: No signs and/or symptoms were reported involving the gastrointestinal system. Vital Signs: 13:46 BP 91 / 46; Pulse 65; Resp 18; Temp 97.0(TE); Pulse Ox 100% on R/A; Weight 63.5 kg; ss Height 5 ft. 1 in. (154.94 cm); 15:38 BP 122 / 44; Pulse 64; Resp 18; Pulse Ox 95% on R/A; ph 15:54 BP 126 / 43 Supine; Pulse 66; ph 15:54 BP 118 / 44 Sitting; Pulse 76; ph 15:54 BP 130 / 51 Standing; Pulse 83; ph 16:49 BP 137 / 46; Pulse 76; Resp 18; Pulse Ox 98% on R/A; ph 17:45 BP 131 / 47; Pulse 68; Resp 18; Pulse Ox 98% on R/A; ph 18:48 BP 128 / 48; Pulse 74; Resp 18; Pulse Ox 99% on R/A; ph 19:31 BP 137 / 43; Pulse 102; Resp 19; Pulse Ox 98% ; rr5 13:46 Body Mass Index 26.45 (63.50 kg, 154.94 cm) ss ED Course: 13:45 Patient arrived in ED. ph 13:49 Triage completed. ss 13:50 Arm band placed on left wrist. ss 13:51 Viry Martin FNP-C is [facility]. kb 13:51 Paulie Garcia MD is Attending Physician. kb 14:03 Tyesha Jose, RN is Primary Nurse. ph 14:04 Patient has correct armband on for positive identification. Placed in gown. Bed in low ph position. Call light in reach. Side rails up X2. surveillance monitor on. Pulse ox on. NIBP on. Door closed. Noise minimized. Warm blanket given. 14:07 XRAY Chest (1 view) In Process Unspecified. EDMS 14:10 CT Head C Spine In Process Unspecified. EDMS 15:42 US Abdomen Limited In Process Unspecified. EDMS 16:22 Vaibhav Hirsch MD is Hospitalizing Provider. kb 17:40 Urine collected: clean catch specimen, clear. mh5 18:49 No provider procedures requiring assistance completed. Patient admitted, IV remains in ph place. 19:20 Primary Nurse role handed off by Tyesha Jose, RN tt3 19:31 Francisco Perez, FABBY is Primary Nurse. rr5 Administered Medications: 19:14 Drug: Lasix 20 mg Route: IVP; Site: right antecubital; mg2 Outcome: 16:23 Decision to Hospitalize by Provider. kb 19:43 Admitted to Med/surg accompanied by tech, via stretcher, room 228, with chart, Report mg2 called to FABBY Jackson 19:43 Condition: stable 19:43 Instructed on the need for admit, Demonstrated understanding of instructions. 20:01 Patient left the ED. mg2 Signatures: Dispatcher [employer] EDMS Viry Martin, FELT HANGER-C FELT HANGER-CkEulalia Keen RN RN ss Tyesha Jose RN RN Ilda Guzman [facility] Osmel Rojas RN RN mg2 Francisco Perez RN RN rr5 Ez Daly 3 Corrections: (The following items were deleted from the chart) 23:13 19:52 Reassessment: [id number] ritika daughter rr5 rr5
--- NOTE | 2020-07-05 16:23 | EDPHYS ---
Physician Documentation [facility] Name: Shaina Zuleta Age: 84 yrs Sex: Female : 1935 Arrival Date: 07/05/2020 Time: 13:45 Bed 3 Private MD: ED Physician Paulie Garcia HPI: 07/05 19:14 This 84 yrs old Female presents to ER via Ambulatory with complaints of kb Syncope. 19:14 The patient has experienced syncope, collapsed. Onset: The symptoms/episode kb began/occurred just prior to arrival. Duration: This was a single episode, lasted a few seconds. Context: the episode(s) was witnessed, by family, daughter, occurred at home, occurred while the patient was cooking. Just prior to the episode the patient experienced no apparent symptoms. Associated injury: The patient did not suffer any apparent associated injury. Associated signs and symptoms: The patient has no apparent associated signs or symptoms. Current symptoms: Currently, the patient is not experiencing any symptoms, the patient feels back to baseline, no decreased level of consciousness, no confusion, no dysphasia, no headache, no paralysis, no visual changes. The patient has not experienced similar symptoms in the past. The patient has not recently seen a physician. Pt states she was frying porChatouss and passed out. Denies any pain or injuries. Denies chest pain, palpitations, shortness of breath, dizziness, weakness. . Historical: - Allergies: 13:50 Ibuprofen; ss - PMHx: 13:50 Arthritis; Hypertension; ss - PSHx: 13:50 Hysterectomy; ss - Immunization history:: Adult Immunizations up to date. - Social history:: Smoking status: Patient denies any tobacco usage or history of. ROS: 19:14 Constitutional: Negative for fever, chills, and weight loss, Cardiovascular: Negative kb for chest pain, palpitations, and edema, Respiratory: Negative for shortness of breath, cough, wheezing, and pleuritic chest pain, Abdomen/GI: Negative for abdominal pain, nausea, vomiting, diarrhea, and constipation, Back: Negative for injury and pain, MS/Extremity: Negative for injury and deformity, Skin: Negative for injury, rash, and discoloration. 19:14 Neuro: Positive for syncope. Exam: 19:14 Constitutional: This is a well developed, well nourished patient who is awake, alert, kb and in no acute distress. Head/Face: Normocephalic, atraumatic. Chest/axilla: Normal chest wall appearance and motion. Nontender with no deformity. No lesions are appreciated. Cardiovascular: Regular rate and rhythm with a normal S1 and S2. No gallops, murmurs, or rubs. Normal PMI, no JVD. No pulse deficits. Respiratory: Lungs have equal breath sounds bilaterally, clear to auscultation and percussion. No rales, rhonchi or wheezes noted. No increased work of breathing, no retractions or nasal flaring. Abdomen/GI: Soft, non-tender, with normal bowel sounds. No distension or tympany. No guarding or rebound. No evidence of tenderness throughout. Skin: Warm, dry with normal turgor. Normal color with no rashes, no lesions, and no evidence of cellulitis. MS/ Extremity: Pulses equal, no cyanosis. Neurovascular intact. Full, normal range of motion. Neuro: Awake and alert, GCS 15, oriented to person, place, time, and situation. Cranial nerves II-XII grossly intact. Motor strength 5/5 in all extremities. Sensory grossly intact. Cerebellar exam normal. Normal gait. Vital Signs: 13:46 BP 91 / 46; Pulse 65; Resp 18; Temp 97.0(TE); Pulse Ox 100% on R/A; Weight 63.5 kg; ss Height 5 ft. 1 in. (154.94 cm); 15:38 BP 122 / 44; Pulse 64; Resp 18; Pulse Ox 95% on R/A; ph 15:54 BP 126 / 43 Supine; Pulse 66; ph 15:54 BP 118 / 44 Sitting; Pulse 76; ph 15:54 BP 130 / 51 Standing; Pulse 83; ph 16:49 BP 137 / 46; Pulse 76; Resp 18; Pulse Ox 98% on R/A; ph 17:45 BP 131 / 47; Pulse 68; Resp 18; Pulse Ox 98% on R/A; ph 18:48 BP 128 / 48; Pulse 74; Resp 18; Pulse Ox 99% on R/A; ph 19:31 BP 137 / 43; Pulse 102; Resp 19; Pulse Ox 98% ; rr5 13:46 Body Mass Index 26.45 (63.50 kg, 154.94 cm) ss MDM: 13:51 Patient medically screened. kb 17:35 Data reviewed: vital signs, nurses notes. Data interpreted: Pulse oximetry: on room air kb is 98 %. Interpretation: normal. Counseling: I had a detailed discussion with the patient and/or guardian regarding: the historical points, exam findings, and any diagnostic results supporting the discharge/admit diagnosis, lab results, radiology results, the need for further work-up and treatment in the hospital. Physician consultation: A Joycelyn PAUL was contacted at 17:35, regarding admission, to the telemetry unit. patient's condition, and will see patient in inpatient room. 07/05 13:52 Order name: Basic Metabolic Panel; Complete Time: 14:43 kb 07/05 13:52 Order name: CBC with Diff; Complete Time: 14:29 kb 07/05 13:52 Order name: LFT's; Complete Time: 14:43 kb 07/05 13:52 Order name: Magnesium; Complete Time: 14:43 kb 07/05 13:52 Order name: NT PRO-BNP; Complete Time: 14:43 kb 07/05 13:52 Order name: PT-INR; Complete Time: 14:20 kb 07/05 13:52 Order name: Troponin (emerg Dept Use Only); Complete Time: 14:43 kb 07/05 13:52 Order name: XRAY Chest (1 view); Complete Time: 14:34 kb 07/05 13:59 Order name: CT Head C Spine; Complete Time: 14:37 kb 07/05 14:49 Order name: US Abdomen Limited; Complete Time: 15:54 kb 07/05 17:40 Order name: Urine Dipstick--Ancillary (enter results) eb 07/05 18:46 Order name: SARS-COV-2 RT PCR; Complete Time: 18:46 EDMS 07/05 13:52 Order name: EKG; Complete Time: 13:53 kb 07/05 13:52 Order name: Cardiac monitoring; Complete Time: 15:00 kb 07/05 13:52 Order name: EKG - Nurse/Tech; Complete Time: 15:42 kb 07/05 13:52 Order name: IV Saline Lock; Complete Time: 15:00 kb 07/05 13:52 Order name: Labs collected and sent; Complete Time: 15:00 kb 07/05 13:52 Order name: O2 Per Protocol; Complete Time: 15:00 kb 07/05 13:52 Order name: O2 Sat Monitoring; Complete Time: 14:59 kb 07/05 13:52 Order name: Orthostatics; Complete Time: 15:53 kb 07/05 14:48 Order name: Urine Dipstick-Ancillary (obtain specimen); Complete Time: 17:38 kb Administered Medications: 19:14 Drug: Lasix 20 mg Route: IVP; Site: right antecubital; mg2 Disposition: 07/05/20 16:23 Hospitalization ordered by Vaibhav Hirsch for Observation. Preliminary diagnosis is Syncope and collapse. - Bed requested for Telemetry/MedSurg (observation). - Status is Observation. mg2 - Condition is Stable. - Problem is new. - Symptoms are unchanged. Addendum: 07/07/2020 07:36 Co-signature as Attending Physician, Paulie Garcia MD I agree with the assessment and t w4 plan of care. Signatures: Dispatcher [employer] EDWV Viry Martin, SUGAR COATING HAND-C SUGAR COATING HAND-Ckb Lluvia Greene RN RN Eulalia Mishra RN RN Paulie Garcia MD MD tw4 Osmel Rojas RN RN mg2 Corrections: (The following items were deleted from the chart) 07/05 17:41 16:52 CORONAVIRUS+MR.LAB.BRZ ordered. [facility] EDMS 19:27 16:23 Hospitalization Ordered by A Joycelyn PAUL for Observation. Preliminary diagnosis is dw Syncope and collapse. Bed requested for Telemetry/MedSurg (observation). Status is Observation. Condition is Stable. Problem is new. Symptoms are unchanged. kb 20:01 19:27 07/05/2020 16:23 Hospitalization Ordered by A Joycelyn PAUL for Observation. mg2 Preliminary diagnosis is Syncope and collapse. Bed requested for Telemetry/MedSurg (observation). Status is Observation. Condition is Stable. Problem is new. Symptoms are unchanged. dw
[2020-07-05] MEDS ORDERED: FUROSEMIDE 20 MG/ 2ML VIAL ONE (17:56)
[2020-07-05 20:14] VITALS: O2SAT 98
[2020-07-05 22:46] VITALS: BMI 26.4
[2020-07-06 06:21] LABS: Potassium 3.6 mmol/L (3.5-5.1)
[2020-07-06 06:25] LABS: Absolute Lymphocytes (CBC) 1.4 K/uL (0.7-4.9); Basophils % 0.5 % (0-1.3); Hematocrit 31.4 % (36.0-45.0); Lymphocytes % 21.4 % (15.3-44.8); MPV 8.5 fL (7.6-11.3); RBC Red Blood Cell Count 3.61 M/uL (3.86-4.86)
[2020-07-06 09:58] LABS: Albumin 2.6 g/dL (3.4-5.0); Bilirubin Direct 0.3 mg/dL (0-0.2); Bilirubin Total 0.9 mg/dL (0.2-1.0); Ferritin 276.6 ng/mL (8-388); Protein, Total 6.1 g/dL (6.4-8.2)
[2020-07-06] MEDS ORDERED: carvediloL 25 MG TAB PO SCH (10:45)
[2020-07-06] MEDS ORDERED: lisinopriL 20 MG TAB PO SCH (10:45)
[2020-07-06] MEDS ORDERED: NIFEDIPINE XL 60 MG TABLET PO SCH (10:45)
[2020-07-06] MEDS ORDERED: HYDRALAZINE HCL 25 MG TABLET PO SCH (10:45)
[2020-07-06 15:05] VITALS: BP 108/49; TEMP 97.9
--- NOTE | 2020-07-06 21:02 | CON ---
Date of Consultation: 07/06/[address] The patient admitted to Dr. Hirsch's service with syncope on 07/05/2020. I saw the patient on 07/06/19. Reason For Consultation: Syncope. History Of Present Illness: Ms. Zuleta is an 84-year-old woman without any significant past cardiac history. She has a history of severe hypertension requiring hydralazine, nifedipine, Coreg, lisinopr il, and hydrochlorothiazide for control. She had an episode of syncope after she got lightheaded whi le she was cooking. Denied any chest pain. Denied any PND, orthopnea, pedal edema, or palpitation. She could not remember much after her syncopal episode until she woke up being picked up by the [facility] staff. Workup so far showed a slightly elevated BNP, elevated liver function enzymes including AST, ALT, and elevated alkaline phosphatase. Hepatitis panel is pending. Her creatinine was 1.62 a nd it improved to 1.25. Recently, she had a TIA and had an extensive negative workup including echoc ardiogram, carotid Doppler, MRA of the brain. She did have a CT of her spine this admission to rule out cervical spondylosis. She does have continuous uncomfortable neck pain for which she takes Tylen ol. She is allergic to Motrin. Past Medical History: As stated above. Allergies: INCLUDE MOTRIN. Review of Systems: Negative. Social History: Negative. Family History: Noncontributory. Physical Examination: Vital Signs: Stable, afebrile. HEENT: Negative. Neck: Supple. No bruit. Chest: Clear. Cardiac: Revealed a regular rhythm and rate. No murmurs, gallops, or rubs. Abdomen: Benign. Extremities: Revealed no clubbing, cyanosis, or edema. Diagnostic Data: Stated earlier. EKG revealed normal sinus rhythm, nonspecific changes. Chest x-ra y is negative. Impression And Plan: Syncope, most likely secondary to orthostatic hypotension or vasovagal syncope secondary to her neck pain. I think cervical spondylosis is a possibility causing her pain, which ma y be giving her a vasovagal reaction. She takes medication for her blood pressure, which controls he r pressure, but she may have orthostatic as well. I think her elevated liver function and elevated c reatinine are suggestive of a low blood pressure episode. Nevertheless, hepatitis panel is pending. I think I am comfortable with her going home. I think she should have a 7-day outpatient event [facility] to rule out sick sinus syndrome. Consider MRI of the cervical spine. Continue present regimen. Her other issues include hypertension, which is well controlled now. She is also on Fosamax for ost eoporosis and Lipitor for dyslipidemia. The case was discussed with Dr. Hirsch. LEROY/ANYA Voice ID: [id number] Report ID: [id number]
--- NOTE | 2020-07-06 22:23 | HP ---
Date of Admission: 07/06/2020 Chief Complaint: Passing out. History Of Present Illness: An 84-year-old pleasant female patient, who was in the hospital about a month ago with TIA problem. During that particular admission, she was started on Plavix 75 mg daily and her pravastatin was discontinued, and she was started on atorvastatin 80 mg daily. After her admission to hospital, she has done well as far as neurological signs and symptoms are concerned. She has been having some pain in the back of the neck that happens on a frequent basis and it radiates in the back of her head and upper back, and she describes that happens from time to time. Last time, she was standing in the kitchen, preparing some meal, and all of a sudden she felt little lightheaded, dizzy, and she was leaning over the kitchen counter and her nephew was there, who came to help her and noted that the patient actually was not responding and was fainting, so he actually helped her to get down on the floor and the patient passed out for about approximately 10 minutes as family says. Subsequently, the patient woke up and she did not have any symptoms. She did not have any chest pain, shortness of breath, palpitation before or after this episode. No nausea. No vomiting. No headache. She did have a spell of urinary incontinence during this syncopal episode. After she was brought to the ER, she was evaluated and admitted to the hospital. Denies any vomiting or diarrhea.. Allergies: IBUPROFEN. Medications: List reviewed. Review of Systems: Cardiovascular: As mentioned above. 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 All other systems reviewed and negative. Past Medical History: Significant for hypertension, hyperlipidemia, chronic kidney disease stage 3, chronic leg edema, osteoarthritis at multiple sites, osteoporosis, and leukocytopenia. Past Surgical History: Appendectomy, hysterectomy. Family History: Father had asthma. Mother had hypertension and macular degeneration. Social History: Negative for smoking or alcohol use. Physical Examination: Vital Signs: Temperature 97.6, pulse 64, respiratory rate 16, blood pressure 197/77 this morning, oxygen saturation 97%, height 5 feet 1 inch, weight 140 pounds. General: Awake, alert, oriented, not in distress. HEENT: Head atraumatic, normocephalic. Conjunctivae nonerythematous. Sclerae white. Mouth, no thrush or edema noted. Ears/Nose, no mass, lesion, discharge noted. Neck: Supple. No JVD, lymph nodes, bruit, thyromegaly noted. Lungs: Bilateral good equal air entry. Clear to auscultation. No rhonchi. No rales. Heart: Normal heart sounds. No murmur or gallop. Abdomen: Soft. Bowel sounds normal. No guarding, rigidity, tenderness, mass, hepatosplenomegaly, distention, or bruit noted. Extremities: No leg edema. No calf tenderness. Skin: No rash, ulcer, cellulitis. Lymphatics: No lymph node enlargement in neck, supraclavicular, infraclavicular region. Neuro: No focal neurological deficit. Chest: Unremarkable. External Genitalia: Deferred. Rectal: Deferred. Laboratory Data: Chest xray shows increased interstitial marksing in both lungs. Yesterday, white count 7.8, hemoglobin 10.9, platelets 244. Today, white count 6.3, hemoglobin 10.3, platelets 238. Her chemistry yesterday, sodium 141, potassium 4, chloride 107, bicarb 26, BUN 17, creatinine 1.62, glucose 119, magnesium 2.8, total bilirubin 1.3, direct bilirubin 0.6, AST 121, ALT 332, alkaline phosphatase 315. Troponin less than 0.02 x3. This morning, total bilirubin 0.9, direct bilirubin 0.3, AST 96, ALT 274, alkaline phosphatase 305, BUN 18, creatinine 1.25. This morning, glucose 91, sodium 142, potassium 3.6. Hepatitis profile done, results pending. Hospital Course: After the patient was evaluated in the emergency room, she was admitted to the hospital for observation. On telemetry, she remained asymptomatic. No cardiac arrhythmia reported. Cardiology consultation was requested from Dr. Bergeron and I did discuss details with him and he evaluated the patient. He has given his okay for the patient to go home. Medically, she is stable for discharge and Dr. Bergeron's office will contact the patient to schedule event monitor on outpatient basis and I will communicate with Dr. Sen and request evaluation by him also including EEG. The patient does try her Codeine. I have instructed her in view of this recent episode of syncope until further workup is completed and until further instruction, she should not drive her car and she understands the importance of this instruction for her safety and other people safety. The patient's daughter was present with her when I was communicating with her today in her room. Discharge Medications And Instructions: 1. Continue all prior home medication except do not take atorvastatin. 2. Follow up at my office this coming week on , which is July 11, 2020. 3. Follow up with Dr. Bergeron and Dr. Sen as per suggestion. Final Diagnoses: 1. Syncope. 2. Hypertension. 3. Hyperlipidemia. 4. Chronic kidney disease stage 3A. 5. Osteoarthritis, multiple sites. 6. Osteoporosis. 7. Leukocytopenia. 8. Anemia, unspecified. LORNEZO/MODL Voice ID: [id number] MTDD
--- NOTE | 2020-07-08 10:32 | EKG ---
Test Date: 2020-07-06 Test Time: 06:03:59 Rn Manager: ER MEASUREMENT RESULTS: Intervals: Rate: 64 WI: 172 QRSD: 84 QT: 438 QTc: 451 Mcdade: P: 70 WI: 172 QRS: 60 T: 70 INTERPRETIVE STATEMENTS: Sinus rhythm with occasional premature ventricular complexes Septal infarct, age undetermined Abnormal ECG Compared to ECG 06/06/2020 22:33:58 Ventricular premature complex(es) now present Myocardial infarct finding now present Electronically Signed On 07-08-20 10:28:06 PRACTICAL NURSING TEACHER by Rolly Bergeron
[2020-07-09 02:58] LABS: HBsAG Nonreactive (Nonreactive)
== END 2020-07-06 16:57 | disposition home or self-care (01) ==
LOC: ER 13:38 → ERHOLD 17:48 → 2ND 19:53
PROVIDERS: ADMIT Internal Medicine; ATTEND Internal Medicine
DX: R55 Syncope and collapse (principal); I12.9 Hypertensive chronic kidney disease with stage 1 through stage 4 chronic kidney disease, or unspecified chronic kidney disease; N18.31 Chronic kidney disease, stage 3a; E78.5 Hyperlipidemia, unspecified; M15.9 Polyosteoarthritis, unspecified; Z20.822 Contact with and (suspected) exposure to COVID-19; M81.0 Age-related osteoporosis without current pathological fracture; D63.1 Anemia in chronic kidney disease; D72.819 Decreased white blood cell count, unspecified; Z86.73 Personal history of transient ischemic attack (TIA), and cerebral infarction without residual deficits; Z79.02 Long term (current) use of antithrombotics/antiplatelets; R94.31 Abnormal electrocardiogram [ECG] [EKG]
CPT/HCPCS: 93005; 85025 ×2; 80048 ×2; 36415; 83735; 85610; 80076 ×2; 84484 ×3; 82728; 83880; 80074; 70450; 72125; 71045; 76705; 96374; 99285; U0003; J1940; G0378 ×3

== ENCOUNTER 2023-05-11 17:34 | Inpatient (IN) | payer OTHER ==
[2023-05-11] MEDS ORDERED: MORPHINE 4 MG/ML SYR ONE (18:42)
[2023-05-11] MEDS ORDERED: NA CHLORIDE 0.9% 1,000 ML ONE (18:42)
[2023-05-11] MEDS ORDERED: ONDANSETRON 4 MG/2 ML VIAL ONE (18:42)
[2023-05-11 18:48] LABS: Absolute Lymphocytes (CBC) 0.8 K/uL (0.7-4.9); Hematocrit 39.3 % (36.0-45.0); Lymphocytes % 8.5 % (15.3-44.8); MCV 87.2 fL (80-100); MPV 7.8 fL (7.6-11.3); Platelets 208 thou/uL (152-406); RBC Red Blood Cell Count 4.51 M/uL (3.86-4.86)
[2023-05-11 19:05] LABS: Albumin 2.5 g/dL (3.4-5.0); Bilirubin Total 0.8 mg/dL (0.2-1.0); Potassium 3.6 mEq/L (3.5-5.1); Protein, Total 6.3 g/dL (6.4-8.2)
--- NOTE | 2023-05-11 19:36 | RAD REPORT ---
EXAM DESCRIPTION: CTAbdomen Pelvis W Contrast - 05/11/2023 7:21 pm CLINICAL HISTORY: Abdominal pain. ABD PAIN COMPARISON: CT ABD PELVIS W CONTRAST dated 06/08/2014; Abdomen Pelvis Wo Contrast dated 04/10/2023 TECHNIQUE: Biphasic CT imaging of the abdomen and pelvis was performed with 100 ml non-ionic IV cont rast. All CT scans are performed using dose optimization technique as appropriate and may include automated exposure control or mA/KV adjustment according to patient size. FINDINGS: The lung bases are clear.Small hiatal hernia. The liver, spleen, pancreas, adrenal glands and kidneys are within normal limits. No bowel obstruction, free air, abscess. There is significant fecal retention throughout the colon. There is moderately severe inflammation involving the descending colon as well as the sigmoid colon, which appears mildly more severe relative to the 04/10/2023 prior study. Mild free fluid is seen in t he pelvis. No bulky lymphadenopathy is present in the abdomen pelvis. No suspicious bony findings. IMPRESSION: Moderately severe inflammation involving the descending colon as well as the sigmoid col on most compatible with colitis. The degree of inflammation is mildly worse relative to the prior study. Prominent fecal retention is present throughout the colon.
--- NOTE | 2023-05-11 19:52 | ER ---
Nurse's Notes [facility] Name: Shaina Zuleta Age: 87 yrs Sex: Female : 1935 Arrival Date: 05/11/2023 Time: 17:34 Bed 16 Private MD: Behzad Hirsch Diagnosis: Left sided colitis Presentation: 05/11 18:14 Chief complaint: Patient states: N/V/D and lower abdominal pain since yesterday, hx of jl7 diverticulitis. Coronavirus screen: At this time, the client does not indicate any symptoms associated with coronavirus-19. Ebola Screen: No symptoms or risks identified at this time. Initial Sepsis Screen: Does the patient meet any 2 criteria? No. Patient's initial sepsis screen is negative. Does the patient have a suspected source of infection? No. Patient's initial sepsis screen is negative. Risk Assessment: Do you want to hurt yourself or someone else? Patient reports no desire to harm self or others. Onset of symptoms was May 10, 2023. 18:14 Method Of Arrival: Ambulatory [facility] 18:14 Acuity: LUL 3 jl7 Historical: - Allergies: 18:16 Ibuprofen; jl7 - Home Meds: 18:16 aspirin 81 mg Oral capsule [Active]; alendronate oral [Active]; atorvastatin 80 mg Oral jl7 tablet [Active]; carvedilol 12.5 mg Oral tablet 1 tab [Active]; gabapentin 100 mg Oral capsule [Active]; hydralazine 10 mg Oral tablet [Active]; hydrochlorothiazide 25 mg Oral tablet [Active]; lisinopril 20 mg Oral tablet [Active]; pravastatin 40 mg Oral tablet [Active]; Procardia 60 mg Oral [Active]; - PMHx: 18:16 Arthritis; Hypercholesterolemia; Hypertension; neuralgia; jl7 - PSHx: 18:16 cataract surgery; hysterectomy; jl7 - Immunization history:: Adult Immunizations unknown. - Social history:: Smoking status: Patient denies any tobacco usage or history of. Screenin:42 [facility] ED Fall Risk Assessment (Adult) Score/Fall Risk Level 0 - 2 = Low Risk hb Oriented to surroundings, Maintained a safe environment. Abuse screen: Denies threats or abuse. Denies injuries from another. Nutritional screening: No deficits noted. Tuberculosis screening: No symptoms or risk factors identified. Assessment: 18:42 General: Appears in no apparent distress. Behavior is calm, cooperative. Pain: Pain hb currently is 8 out of 10 on a pain scale. Neuro: Level of Consciousness is awake, alert, obeys commands, Oriented to person, place, time, situation. Cardiovascular: Patient's skin is warm and dry. Respiratory: Respiratory effort is even, unlabored, Respiratory pattern is regular, symmetrical. GI: Reports lower abdominal pain, diarrhea, nausea, vomiting. : No signs and/or symptoms were reported regarding the genitourinary system. EENT: No signs and/or symptoms were reported regarding the EENT system. Derm: Skin is pink, warm \T\ dry. Musculoskeletal: No signs and/or symptoms reported regarding the musculoskeletal system. 19:09 Reassessment: Patient is alert, oriented x 3, equal unlabored respirations, skin jj7 warm/dry/pink. ASSUMED CARE OF PT. PT LYING IN BED. FAMILY AT BEDSIDE. PT STATES SHE IS FEELING COMFORTABLE. NO PAIN AT THIS TIME. OIL DISPENSER AT BEDSIDE ABOUT TO TAKE PT FOR EXAM. VS STABLE. Vital Signs: 18:14 BP 174 / 83; Pulse 81; Resp 17; Temp 99.4; Pulse Ox 99% ; Weight 62.14 kg; Height 5 ft. jl7 1 in. ; 19:30 BP 156 / 59; Pulse 83; Resp 20; Pulse Ox 99% ; Pain 0/10; jj7 20:34 BP 154 / 60; Pulse 74; Resp 17; Pulse Ox 96% ; Pain 0/10; jj7 21:30 BP 156 / 55; Pulse 76; Resp 16; Pulse Ox 97% ; jj7 22:19 BP 133 / 49; Pulse 78; Resp 16; Pulse Ox 96% ; Pain 0/10; jj7 22:58 BP 125 / 55; Pulse 72; Resp 18; Pulse Ox 96% ; Pain 0/10; jj7 18:14 Body Mass Index 25.89 (62.14 kg, 154.94 cm) jl7 19:30 Pain Scale: Adult jj7 20:34 Pain Scale: Adult jj7 22:19 Pain Scale: Adult jj7 22:58 Pain Scale: Adult jj7 ED Course: 17:36 Patient arrived in ED. rg4 17:37 Behzad Hirsch MD is Private Physician. rg4 17:37 Travon Huber MD is Attending Physician. ec2 18:16 Triage completed. jl7 18:16 Arm band placed on right wrist. jl7 18:40 Inserted saline lock: 20 gauge in right antecubital area, using aseptic technique. hb Blood collected. 18:41 CMP Sent. hb 18:41 Lipase Sent. hb 18:41 CBC with Diff Sent. hb 18:42 Patient has correct armband on for positive identification. Provided Education on: . hb 19:23 CT Abd/Pelvis - IV Contrast Only In Process Unspecified. EDMS 19:52 Behzad Hirsch MD is Hospitalizing Provider. ec2 20:33 Gena Nicolas, FABBY is Primary Nurse. jj7 22:18 No provider procedures requiring assistance completed. Patient admitted, IV remains in jj7 place. Administered Medications: 18:41 Drug: NS 0.9% IV 1000 ml IV at 1 bolus Per protocol; 1000 mL bolus Route: IV; Rate: 1 hb bolus; Site: right antecubital; 19:57 Follow up: IV Status: Completed infusion jj7 18:41 Drug: Ondansetron IVP 4 mg IVP once; over 2 minutes Route: IVP; Site: right antecubital;hb 19:15 Follow up: Response: Marked relief of symptoms jj7 18:41 Drug: morphine IVP or IV 4 mg IVP once over 4 mins Route: IVP; Infused Over: 4 mins; hb Site: right antecubital; 19:15 Follow up: Response: Marked relief of symptoms j7 Medication: 22:18 VIS not applicable for this client. jj7 Outcome: 19:52 Decision to Hospitalize by Provider. ec2 22:59 Admitted to Med/surg accompanied by tech, family with patient, room 410, Report called jj7 to FARIHA SEQUEIRA 22:59 Condition: improved 23:30 Patient left the ED. jj7 Signatures: Dispatcher [employer] EDMS Mary Oliva, RN Lu Looney rg4 Cesar Kim RN RN jl7 Johnson, Juwairiyah, RN RN jj7 Corral, Edwin, MD MD ec2
--- NOTE | 2023-05-11 19:52 | EDPHYS ---
Physician Documentation [facility] Name: Shaina Zuleta Age: 87 yrs Sex: Female : 1935 Arrival Date: 05/11/2023 Time: 17:34 Bed 16 Private MD: Behzad Hirsch ED Physician Travon Huber HPI: 05/11 18:18 This 87 yrs old Female presents to ER via Ambulatory with complaints of ec2 Abdominal Pain, Vomiting. 18:18 Patient arrives today due to concern for persistent abdominal pain. Patient reports ec2 that she was diagnosed with diverticulitis recently was discharged on p.o. antibiotics and is still having symptoms. Patient reports some lower abdominal pain along with nausea, vomiting, diarrhea.. Historical: - Allergies: 18:16 Ibuprofen; jl7 - Home Meds: 18:16 aspirin 81 mg Oral capsule [Active]; alendronate oral [Active]; atorvastatin 80 mg Oral jl7 tablet [Active]; carvedilol 12.5 mg Oral tablet 1 tab [Active]; gabapentin 100 mg Oral capsule [Active]; hydralazine 10 mg Oral tablet [Active]; hydrochlorothiazide 25 mg Oral tablet [Active]; lisinopril 20 mg Oral tablet [Active]; pravastatin 40 mg Oral tablet [Active]; Procardia 60 mg Oral [Active]; - PMHx: 18:16 Arthritis; Hypercholesterolemia; Hypertension; neuralgia; jl7 - PSHx: 18:16 cataract surgery; hysterectomy; jl7 - Immunization history:: Adult Immunizations unknown. - Social history:: Smoking status: Patient denies any tobacco usage or history of. ROS: 18:18 Constitutional: as per hpi ec2 Exam: 18:18 Constitutional: GEN: NAD Head: atraumatic Eyes: EOMI Ears: External ears are ec2 normal. CV: regular rate LUNGS: no respiratory distress ABD: non-distended, soft, tender in the lower abdomen, no guarding, not rigid SKIN: no evidence of rashes MSK: no evidence of trauma NEURO: moves all extremities equally Vital Signs: 18:14 BP 174 / 83; Pulse 81; Resp 17; Temp 99.4; Pulse Ox 99% ; Weight 62.14 kg; Height 5 ft. jl7 1 in. ; 19:30 BP 156 / 59; Pulse 83; Resp 20; Pulse Ox 99% ; Pain 0/10; jj7 20:34 BP 154 / 60; Pulse 74; Resp 17; Pulse Ox 96% ; Pain 0/10; jj7 21:30 BP 156 / 55; Pulse 76; Resp 16; Pulse Ox 97% ; jj7 22:19 BP 133 / 49; Pulse 78; Resp 16; Pulse Ox 96% ; Pain 0/10; jj7 22:58 BP 125 / 55; Pulse 72; Resp 18; Pulse Ox 96% ; Pain 0/10; jj7 18:14 Body Mass Index 25.89 (62.14 kg, 154.94 cm) jl7 19:30 Pain Scale: Adult jj7 20:34 Pain Scale: Adult jj7 22:19 Pain Scale: Adult jj7 22:58 Pain Scale: Adult jj7 MDM: 17:37 Patient medically screened. ec2 18:18 ED course: Patient arrives today for evaluation of lower abdominal pain with associated ec2 nausea, vomiting, diarrhea. Examination remarkable for abdominal findings as noted above. Will obtain lab work, treat the patient's pain with IV morphine, obtain a CT abdomen pelvis to further evaluate. Currently considering process such as gastroenteritis, diverticulitis, complication of diverticulitis such as abscess.. 19:13 ED course: Patient's lab work remarkable for a reassuring CBC, metabolic profile with ec2 appropriate electrolytes and some diminished renal function with a GFR of 38 and a creatinine of 1.34. Lipase within normal ranges. Pending CT abdomen pelvis. . 19:52 Data reviewed: vital signs. ED course: CT abdomen pelvis with colitis noted, no ec2 evidence of diverticulitis complication. Will admit for symptom control, discussed case with Dr. Hirsch who agrees to accept the patient for admission. Patient updated regarding plan of care and agreeable.. 05/11 18:18 Order name: CBC with Diff; Complete Time: 19:12 ec2 05/11 18:18 Order name: CMP; Complete Time: 19:12 ec2 05/11 18:18 Order name: Lipase; Complete Time: 19:12 ec2 05/11 18:18 Order name: CT Abd/Pelvis - IV Contrast Only; Complete Time: 19:44 ec2 05/11 18:18 Order name: IV Saline Lock; Complete Time: 18:41 ec2 05/11 18:18 Order name: Labs collected and sent; Complete Time: 19:34 ec2 Administered Medications: 18:41 Drug: NS 0.9% IV 1000 ml IV at 1 bolus Per protocol; 1000 mL bolus Route: IV; Rate: 1 hb bolus; Site: right antecubital; 19:57 Follow up: IV Status: Completed infusion jj7 18:41 Drug: Ondansetron IVP 4 mg IVP once; over 2 minutes Route: IVP; Site: right antecubital;hb 19:15 Follow up: Response: Marked relief of symptoms jj7 18:41 Drug: morphine IVP or IV 4 mg IVP once over 4 mins Route: IVP; Infused Over: 4 mins; hb Site: right antecubital; 19:15 Follow up: Response: Marked relief of symptoms jj7 Disposition Summary: 05/11/23 19:52 Hospitalization Ordered Notes: Hospitalization Status: Inpatient Admission ec2 Provider: Behzad Hirsch ec2 Location: Telemetry/[facility] (Inpatient) ec2 Condition: Stable ec2 Problem: an acute exacerbation ec2 Symptoms: have improved ec2 Bed/Room Type: Standard ec2 Room Assignment: 410(05/11/23 21:06) as6 Diagnosis - Left sided colitis ec2 Forms: - Medication Reconciliation Form ec2 - SBAR form ec2 - Leadership Thank You Letter ec2 Signatures: Dispatcher [employer] Mary Sena RN RN Cesar Kim RN RN jl7 Darwin Lindsay RN RN as6 Travon Huber MD MD ec2 Gena Nicolas RN jj7 Corrections: (The following items were deleted from the chart) 21:06 19:52 ec2 as6
[2023-05-11] MEDS ORDERED: ONDANSETRON 4 MG/2 ML VIAL IV PRN (23:20)
[2023-05-11] MEDS ORDERED: MORPHINE 4 MG/ML SYR IV PRN (23:20)
[2023-05-11] MEDS: NA CHLORIDE 0.9% 1,000 ML IV SCH (23:42)
[2023-05-12 02:16] VITALS: BMI 25.9
[2023-05-12] MEDS: carvediloL 12.5 MG TAB PO SCH ×2 (07:24→18:22)
[2023-05-12] MEDS ORDERED: Ciprofloxacin 200mg IV 200 MG/100 ML IV.SOLN. IV SCH ×2 (09:00)
[2023-05-12] MEDS: HYDRALAZINE HCL 25 MG TABLET PO SCH ×2 (09:29→20:20)
[2023-05-12] MEDS: NA CHLORIDE 0.9% 1,000 ML IV SCH ×2 (09:29→19:20)
[2023-05-12] MEDS: ENOXAPARIN 30 MG/0.3 ML SQ SCH (09:29)
[2023-05-12] MEDS: lisinopriL 20 MG TAB PO SCH (09:29)
[2023-05-12] MEDS: Ciprofloxacin 200mg IV 200 MG/100 ML IV.SOLN. IV SCH ×2 (09:29→20:18)
[2023-05-12] MEDS: NIFEDIPINE XL 30 MG TABLET PO SCH (09:30)
--- NOTE | 2023-05-12 22:37 | HP ---
Date of Admission: 05/11/2023 Chief Complaint: Abdominal pain, nausea, vomiting. History Of Present Illness: This is an 87-year-old pleasant female patient who was in hospital about a month ago with colitis problem and after staying in hospital for few days, she was discharged to [facility] home with Levaquin and metronidazole. Patient reports that she got better. Her abdominal pain had resolved completely and in last few days, she started to have this abdominal pain again and yesterda y this pain got lot worse. She has had some nausea vomiting over this period. Denies any constipati on or diarrhea. No blood in stool and after she was evaluated in the ER, she was admitted to the [facility]. Physical Examination: Vital Signs: This morning, temperature 97.1, pulse 65, respiratory rate 18, blood pressure 128/41, o xygen saturation 97%. General: Awake, alert, oriented, not in distress. HEENT: Head atraumatic, normocephalic. Conjunctivae nonerythematous. Sclerae white. Mouth, no thr ush or edema noted. Ears/Nose, no mass, lesion, discharge noted. Neck: Supple. No JVD, lymph nodes, bruit, thyromegaly noted. Lungs: Bilateral good equal air entry. Clear to auscultation. No rhonchi. No rales. Heart: Normal heart sounds, no murmur or gallop. Abdomen: Soft, bowel sounds normal. No guarding, rigidity, distention. No rebound tenderness. Pat ient has moderate tenderness in left lower quadrant. Extremities: No leg edema. No calf tenderness. Skin: No rash, ulcer, cellulitis. Lymphatics: No lymph node enlargement in neck, supraclavicular, infraclavicular region. Neuro: No focal neurological deficit. Chest: Unremarkable. External Genitalia: Deferred. Rectal: Deferred. Laboratory Data: White count 9.3, hemoglobin 13.2, platelets 208. Sodium 139, potassium 3.6, chlori de 108, bicarb 26, BUN 14, creatinine 1.34, glucose 156. Liver function tests unremarkable. Lipase 21. CAT scan of the abdomen and pelvis done in emergency room shows moderate to severe inflammation involving the descending colon as well as sigmoid colon, most compatible with colitis and this has go tten slightly worse compared to 04/10/2023 CAT scan. Impression: 1.Colitis. 2.Volume depletion. 3.Chronic kidney disease, stage 3B. 4.Hypertension. 5.Hyperlipidemia. 6.Bilateral carotid artery stenosis. 7.Leukocytopenia. 8.Insomnia. 9.Osteoarthritis, multiple sites. 10.Anemia due to chronic kidney disease. 11.Osteoporosis. Plan: We will go ahead and admit the patient to hospital for further evaluation and management of th is problem. Patient is appropriate for inpatient and is expected to spend 2 midnights in hospital. We will go ahead and start her on Cipro and Zofran for colitis as well as her nausea and vomiting pro blem. DVT prophylaxis will be given with Lovenox per order. Continue home medications for blood pre ssure control per order and monitor blood pressure, make adjustment on antihypertensive medication if necessary. Patient will benefit from Gastroenterology consultation either as an inpatient or electi ve outpatient and one may have to keep in mind about possibility of doing endoscopy procedure, which is colonoscopy as well as other possible intervention to keep in mind would be use of some steroid. I have discussed details with her and I will see her tomorrow for followup. LORENZO/ANYA Voice ID: [id number]
[2023-05-13 00:14] VITALS: O2SAT 97
[2023-05-13] MEDS: carvediloL 12.5 MG TAB PO SCH ×2 (05:05→18:00)
[2023-05-13] MEDS: NA CHLORIDE 0.9% 1,000 ML IV SCH ×2 (05:06→15:03)
[2023-05-13] MEDS: Ciprofloxacin 200mg IV 200 MG/100 ML IV.SOLN. IV SCH (09:23)
[2023-05-13] MEDS: HYDRALAZINE HCL 25 MG TABLET PO SCH (09:23)
[2023-05-13] MEDS: lisinopriL 20 MG TAB PO SCH (09:23)
[2023-05-13] MEDS: ENOXAPARIN 30 MG/0.3 ML SQ SCH (09:24)
[2023-05-13] MEDS: NIFEDIPINE XL 30 MG TABLET PO SCH (09:29)
[2023-05-13 12:18] VITALS: TEMP 98.2
[2023-05-13] MEDS ORDERED: ACETAMINOPHEN 500 MG TAB PO PRN (14:37)
[2023-05-13] MEDS ORDERED: METHYLPREDNISOLONE 40 MG INJ IV ONE (15:00)
[2023-05-13 16:43] VITALS: BP 123/47
--- NOTE | 2023-05-13 19:54 | DS ---
Date of Discharge: 05/13/2023 Physical Examination: HEENT: Unremarkable. Lungs: Clear to auscultation. Heart: Sounds normal. Abdomen: Soft. Bowel sounds normal. No guarding, rigidity, tenderness, distention. Extremities: No leg edema. Discharge Medications And Instructions: 1.Continue all prior home medications. 2.Take Cipro 500 mg 2 times a day for 1 week. 3.Take prednisone 10 mg. Take 3 tablets daily for 3 days, then 2 tablets daily for 3 days, then 1 t ablet daily for 3 days, then stop. 4.Follow up at my office next week. 5.Patient to follow up with her bark fitter, Dr. Izaguirre, and daughter will schedule appointment and I will try to communicate with Dr. Izaguirre regarding her CAT scan findings. Hospital Course: An 87-year-old pleasant female patient admitted to the hospital with abdominal pain . Please see dictated H and P for more information. After patient was evaluated in the ER, she was admitted to the hospital and CAT scan of the abdomen showed evidence of colitis involving descending colon and sigmoid colon, and this was rather colitis has progressed compared to her prior CAT scan ab out a month ago when she was in the hospital with similar problem. During last hospital stay, she wa s given antibiotic and she was discharged to go home with Levaquin and Flagyl for 10 days, and her sy mptoms did improve and in last few days, she started to have symptoms again, so she came back to [facility] room and was admitted to the hospital. We gave her Cipro this time and overall her abdominal p ain has improved. Today, I did have a long discussion with her and her daughter and there is possibi lity of inflammatory bowel disease and with that, she would definitely benefit from colonoscopy on an elective outpatient basis and meanwhile I have decided to start her on steroid therapy, 1 dose of So dez-Medrol 40 mg IV given today, and I will discharge her with oral steroid therapy as outlined above. Final Diagnoses: 1.Colitis. 2.Hypertension. 3.Hyperlipidemia. LORENZO/MODL Voice ID: [id number] Report ID: [id number]
[2023-05-14] MEDS ORDERED: LORATADINE 10 MG TAB PO SCH (15:00)
== END 2023-05-13 19:50 | disposition home or self-care (01) | DRG 387 ==
LOC: ER 17:34 → ERHOLD 19:54 → 4TH 23:06
PROVIDERS: ADMIT Internal Medicine; ATTEND Internal Medicine
DX: K51.50 Left sided colitis without complications (principal); E86.9 Volume depletion, unspecified; I12.9 Hypertensive chronic kidney disease with stage 1 through stage 4 chronic kidney disease, or unspecified chronic kidney disease; N18.32 Chronic kidney disease, stage 3b; D63.1 Anemia in chronic kidney disease; E78.00 Pure hypercholesterolemia, unspecified; I65.23 Occlusion and stenosis of bilateral carotid arteries; M81.0 Age-related osteoporosis without current pathological fracture; M19.09 Primary osteoarthritis, other specified site; G47.00 Insomnia, unspecified; D72.819 Decreased white blood cell count, unspecified; Z88.8 Allergy status to other drugs, medicaments and biological substances; Z79.82 Long term (current) use of aspirin; Z79.02 Long term (current) use of antithrombotics/antiplatelets; Z79.899 Other long term (current) drug therapy; Z90.710 Acquired absence of both cervix and uterus
CPT/HCPCS: 36415; 74177; 80053; 83690; 85025; 96361; 96374; 96375; 97116; 97161; 97530; 99285; J0744; J1650; J2405; J2920; J7030; Q9967